=== PATIENT | female | born 1955 | race Caucasian/White ===

== ENCOUNTER 2025-05-27 14:18 | Emergency (ER) | payer BC ==
[~2025-05-27] VITALS: Ht 167.6 cm; Wt 81.6 kg
[2025-05-27 14:50] VITALS: BP 190/88; TEMP 98
[2025-05-27] MEDS ORDERED: ACETAMINOPHEN ES 500 MG TABLET ONE (15:09)
[2025-05-27] MEDS ORDERED: IBUPROFEN 600 MG TABLET ONE (15:09)
[2025-05-27] MEDS: IBUPROFEN 600 MG TABLET PO ONE (15:11)
[2025-05-27] MEDS: ACETAMINOPHEN ES 500 MG TABLET PO ONE (15:12)
[2025-05-27] MEDS ORDERED: IBUP-1490 PO (15:37)
[2025-05-27 16:52] VITALS: O2SAT 96
== END 2025-05-27 16:56 | disposition home or self-care (01) ==
LOC: ER 14:46
DX: S93.401A Sprain of unspecified ligament of right ankle, initial encounter (principal); I10 Essential (primary) hypertension; W16.92XA Jumping or diving into unspecified water causing other injury, initial encounter; Y93.89 Activity, other specified; Y92.89 Other specified places as the place of occurrence of the external cause; Y99.9 Unspecified external cause status
CPT/HCPCS: 73610-TC